=== PATIENT | male | born 1965 | race Asian ===

== ENCOUNTER 2019-05-25 18:21 | Emergency (ER) | payer SELFPAY ==
[~2019-05-25] VITALS: Ht 175.3 cm; Wt 77.9 kg
[~2019-05-25 18:21] MED LIST: OFLO5DRO46 LEFT EYE
[2019-05-25 18:39] VITALS: BP 150/84; PULSE 77; RESP 18; Ht 175.3 cm; Wt 77.9 kg
--- NOTE | 2019-05-25 18:58 | ERD ---
ER Documentation Chief Complaint Chief Complaint R eye swelling/redness/discharge X 5 days HPI Patient is a 54-year-old male, no past medical history, who presents the ER for concerns of right eye redness, swelling and discharge for last 5 days. Patient states he is visiting from [facility]. Patient states he tried to use previous prescription eyedrops yet however it is not helping. Patient is a fevers or chills. Patient has a blurry vision. Patient denies any pain however states he just feels as if his eyes "irritated". Patient denies any contact lens use. ROS All systems reviewed and are negative except as per history of present illness. Medications Home Meds Active Scripts Ofloxacin* (Ocuflox*) 0.3%-5 Ml Ophth Drops, 1 DROP LEFT EYE QID, #1 BOTTLE Prov:PATRICK LOPEZ PA-C 05/25/19 Allergies Allergies: Coded Allergies: No Known Allergy (Unverified , 05/25/19) FmHx Family History: No diabetes Physical Exam Vitals Vital Signs Date Temp Pulse Resp B/P (MAP) Pulse Ox O2 O2 Flow FiO2 Time Delivery Rate 05/25/19 98.1 77 18 150/84 99 18:39 (106) Physical Exam GENERAL: Well-developed, well-nourished male. Appears in no acute distress. HEAD: Normocephalic, atraumatic. EYES: Pupils are equally reactive bilaterally. EOMs grossly intact. Right conjunctival erythema noted with yellow purulent drainage in the medial canthus and eyelashes. No proptosis. No pain with EOMs. No surrounding periorbital swelling or redness. ENT: Moist mucous membranes. No uvula deviation. No kissing tonsils. NECK: Supple. No meningismus. Normal range of motion of the neck. LUNG: Clear to auscultation bilaterally. No rhonchi, wheezing, rales or coarse breath sounds. HEART: Regular rate and rhythm. No murmurs, rubs or gallops EXTREMITIES: Equal pulses bilaterally. No peripheral clubbing, cyanosis or edema. No unilateral leg swelling. NEUROLOGIC: Alert and oriented. Moving all four extremities without any difficulty. Normal speech. Steady gait. SKIN: Normal color. Warm and dry. No rashes or lesions. Procedures/MDM MEDICAL DECISION MAKING: This is a 54-year-old male, no past medical history, presents the ER for concerns of right eye redness, swelling discharge for last 5 days. Vital signs were reviewed. Patient was afebrile. Physical exam are concerning for c onjunctivitis. Low suspicion for corneal abrasion, corneal ulcer, retained eye foreign body, glaucoma, periorbital cellulitis, orbital cellulitis, hordeolum, dacrocystitis. PRESCRIPTIONS: Ocuflox DISCHARGE: At this time, patient is stable for discharge and outpatient management. Supportive measures were discussed with patient including warm/cool compresses. Patient advised not to wear contact lenses or eye makeup. I have instructed the patient to follow-up with his/her primary care physician in 1-2 days. I have discussed with the patient the possibility of needing to see an diagnostic sales specialist for further workup if symptoms persist. I have instructed the patient to promptly return to the ER for any new or worsening symptoms including increased pain, fever, swelling, redness, warmth, nausea, vomiting, . The patient and/or family expressed understanding of and agreement with this plan. All questions were answered. Home care instructions were provided. Disclaimer: Inadvertent spelling and grammatical errors are likely due to EHR/dictation software use and do not reflect on the overall quality of patient care. Also, please note that the electronic time recorded on this note does not necessarily reflect the actual time of the patient encounter. Departure Diagnosis: Primary Impression: Conjunctivitis Conjunctivitis type: unspecified Laterality: unspecified laterality Qualified Codes: H10.9 - Unspecified conjunctivitis Condition: Fair Patient Instructions: Conjunctivitis Caused by Infection Referrals: [facility] Hours: Fri - Fri 9:00 AM - 5:00 PM Additional Instructions: Call your primary care doctor TOMORROW for an appointment during the next 1-2 days.See the doctor sooner or return here if your condition worsens before your appointment time. PATRICK LOPEZ PA-C May 25, 2019 18:58
== END 2019-05-25 18:47 | disposition home or self-care (01) ==
LOC: FTE 18:21 → E/R 18:47
DX: H10.9 Unspecified conjunctivitis (principal)
CPT/HCPCS: 99283

== ENCOUNTER 2019-05-27 15:46 | Emergency (ER) | payer SELFPAY ==
[~2019-05-27] VITALS: Ht 167.6 cm; Wt 78.0 kg
[2019-05-27 15:49] VITALS: BP 155/58; PULSE 58; RESP 18; Ht 167.6 cm; Wt 78.0 kg
== END 2019-05-27 17:54 | disposition left against medical advice (07) ==
LOC: FTE 15:46
DX: Z53.21 Procedure and treatment not carried out due to patient leaving prior to being seen by health care provider (principal)